=== PATIENT | female | born 1970 | race Asian ===

== ENCOUNTER 2016-12-04 09:11 | Outpatient (CLI) | payer OTHER ==
[~2016-12-04 09:11] MED LIST: AZELASTINE HCL0.15 % PO; BUDEPRION150 MG PO; CETIRIZINE10 MG PO; CHLORTHALID25 MG PO; DIPH25CA90 PO; GABA400C2 PO; LAMOTRIGINE25 MG PO; LISI20TA11 PO; NEURONTIN 100M100 MG PO; OMEPRAZOLE20 M1 PO; ROZEREM8 MG PO; SERT100T PO; ZANTAC 75 PO
== END 2016-12-04 10:11 | disposition home or self-care (01) ==
LOC: MAMMO 09:11
DX: Z12.39 Encounter for other screening for malignant neoplasm of breast (principal); Z12.31 Encounter for screening mammogram for malignant neoplasm of breast
CPT/HCPCS: G0202-TC

== ENCOUNTER 2017-04-20 11:41 | Outpatient (CLI) | payer BC ==
[2017-04-20 12:05] LABS: POTASSIUM 3.1 mmol/L (3.6-5.2); SODIUM 136 mmol/L (136-145)
== END 2017-04-20 12:45 | disposition home or self-care (01) ==
LOC: LABW 11:41
DX: E11.9 Type 2 diabetes mellitus without complications (principal)
CPT/HCPCS: 36415; 80048

== ENCOUNTER 2017-12-31 10:21 | Outpatient (CLI) | payer OTHER | END 2017-12-31 19:21 | disposition home or self-care (01) | LOC: MAMMO 10:21 | DX: Z12.31 Encounter for screening mammogram for malignant neoplasm of breast (principal) ==

== ENCOUNTER 2018-01-28 09:58 | Outpatient (CLI) | payer OTHER | END 2018-01-28 22:21 | disposition home or self-care (01) | LOC: MAMMO 09:58 | DX: R92.8 Other abnormal and inconclusive findings on diagnostic imaging of breast (principal) ==

== ENCOUNTER 2019-02-22 10:32 | Outpatient (CLI) | payer OTHER | END 2019-02-22 21:07 | disposition home or self-care (01) | LOC: MAMMO 10:32 | DX: Z12.31 Encounter for screening mammogram for malignant neoplasm of breast (principal); N60.02 Solitary cyst of left breast ==

== ENCOUNTER 2020-03-17 01:07 | Emergency (ER) | payer OTHER, BC ==
[~2020-03-17] VITALS: Ht 175.3 cm; Wt 95.3 kg
[~2020-03-17 01:07] MED LIST changes: +AMLODIPINE BESYLATE PO; +CARV3.12 PO
[2020-03-17] MEDS ORDERED: CLARITIN10 MG PO (01:55)
[2020-03-17] MEDS ORDERED: AMOX875T8 PO (01:56)
[2020-03-17] MEDS ORDERED: TYLENOL325 MG PO (01:56)
[2020-03-17] MEDS ORDERED: HYDROXYZINE HYD10 MG PO (01:57)
[2020-03-17] MEDS ORDERED: FLONASE AL50 MCG/ACT NAS (01:58)
[2020-03-17 04:53] VITALS: BP 124/88; TEMP 97.3
== END 2020-03-17 05:05 | disposition home or self-care (01) ==
LOC: ED 01:07
DX: K21.9 Gastro-esophageal reflux disease without esophagitis (principal); J02.9 Acute pharyngitis, unspecified; J30.89 Other allergic rhinitis; Z79.2 Long term (current) use of antibiotics
CPT/HCPCS: 87502; 87651; 99283

== ENCOUNTER 2020-03-21 10:19 | Outpatient (CLI) | payer OTHER, BC ==
[~2020-03-21 10:19] MED LIST changes: +AMOX875T8 PO; +CLARITIN10 MG PO; +FLONASE AL50 MCG/ACT NAS; +HYDROXYZINE HYD10 MG PO; +TYLENOL325 MG PO
== END 2020-03-21 22:55 | disposition home or self-care (01) ==
LOC: CT 10:19
DX: R22.1 Localized swelling, mass and lump, neck (principal)
CPT/HCPCS: Q9963

== ENCOUNTER 2020-07-26 10:38 | Outpatient (CLI) | payer BC, OTHER | END 2020-07-26 21:58 | disposition home or self-care (01) | LOC: MAMMO 10:38 | DX: Z12.31 Encounter for screening mammogram for malignant neoplasm of breast (principal) ==

== ENCOUNTER 2020-08-02 11:08 | Outpatient (CLI) | payer OTHER | END 2020-08-02 21:50 | disposition home or self-care (01) | LOC: MAMMO 11:08 | DX: Z12.31 Encounter for screening mammogram for malignant neoplasm of breast (principal) ==

== ENCOUNTER 2020-11-02 13:19 | Emergency (ER) | payer BC, OTHER ==
[~2020-11-02] VITALS: Ht 175.3 cm; Wt 95.3 kg
[2020-11-02 13:37] VITALS: TEMP 97.5
[2020-11-02 14:53] LABS: PLATELET COUNT 247 K/uL (152-353)
[2020-11-02 15:01] LABS: POTASSIUM 2.5 mmol/L (3.6-5.2); SODIUM 140 mmol/L (136-145)
[2020-11-02 18:00] VITALS: BP 121/73
== END 2020-11-02 18:15 | disposition home or self-care (01) ==
LOC: ED 13:19
PROVIDERS: Family Medicine
DX: R07.89 Other chest pain (principal); K21.9 Gastro-esophageal reflux disease without esophagitis; E87.6 Hypokalemia
CPT/HCPCS: 80053; 82550; 84484; 85027; 93005; 99283

== ENCOUNTER 2020-11-03 21:25 | Emergency (ER) | payer BC, OTHER ==
[~2020-11-03] VITALS: Ht 175.3 cm; Wt 95.3 kg
[2020-11-03 22:24] VITALS: BP 132/83; TEMP 98.7
== END 2020-11-03 22:24 | disposition home or self-care (01) ==
LOC: ED 21:25
DX: S13.4XXA Sprain of ligaments of cervical spine, initial encounter (principal); M79.18 Myalgia, other site
CPT/HCPCS: 99282

== ENCOUNTER 2021-10-04 11:31 | Outpatient (CLI) | payer OTHER | END 2021-10-04 19:37 | disposition home or self-care (01) | LOC: MAMMO 11:31 | PROVIDERS: ATTEND Nurse Practitioner Family | DX: Z12.31 Encounter for screening mammogram for malignant neoplasm of breast (principal) ==

== ENCOUNTER 2022-01-14 13:31 | Emergency (ER) | payer OTHER ==
[~2022-01-14] VITALS: Ht 175.3 cm; Wt 95.3 kg
[2022-01-14 13:48] VITALS: TEMP 98.8
[2022-01-14 14:16] LABS: PLATELET COUNT 251 K/uL (152-353)
[2022-01-14 14:25] LABS: POTASSIUM 3.1 mmol/L (3.6-5.2)
[2022-01-14 18:05] VITALS: BP 133/82
== END 2022-01-14 18:07 | disposition home or self-care (01) ==
LOC: ED 13:31
PROVIDERS: Emergency Medicine
DX: R07.89 Other chest pain (principal)
CPT/HCPCS: 36415; 80053; 81000; 84484; 85027; 93005; 96374; 96375; 96376; 99284; J2270; J2405; J3490

== ENCOUNTER 2022-04-03 09:42 | Outpatient (CLI) | payer OTHER | END 2022-04-03 19:28 | disposition home or self-care (01) | LOC: LABW 09:42 | PROVIDERS: ATTEND Internal Medicine Cardiovascular Disease | DX: E78.5 Hyperlipidemia, unspecified (principal) | CPT/HCPCS: 36415; 80061 ==

== ENCOUNTER 2022-06-14 20:51 | Emergency (ER) | payer OTHER ==
[~2022-06-14] VITALS: Ht 175.3 cm; Wt 97.5 kg
[2022-06-14] MEDS ORDERED: K-TAB20 MEQ PO (21:25)
[2022-06-14] MEDS ORDERED: PANTOPRAZOLE 40MG TA PO (21:25)
[2022-06-14] MEDS ORDERED: TIZA4TAB5 PO (21:26)
[2022-06-14] MEDS ORDERED: TRAZ50TA36 PO (21:26)
[2022-06-14] MEDS ORDERED: CARAFATE1 GM PO (21:26)
[2022-06-14 22:02] LABS: PLATELET COUNT 304 K/uL (152-353)
[2022-06-14 22:08] LABS: PARTIAL THROMBOPLASTIN TIME 27.4 SECONDS (24.5-33.6)
[2022-06-15 01:20] VITALS: BP 128/77; TEMP 99.8
== END 2022-06-15 01:20 | disposition short-term general hospital (02) ==
LOC: ED 20:51
PROVIDERS: Family Medicine
DX: K35.890 Other acute appendicitis without perforation or gangrene (principal); E87.6 Hypokalemia
CPT/HCPCS: 36415; 80053; 81002; 82150; 82550; 83690; 84484; 85027; 85610; 85730; 93005; 96360; 96365; 96366; 96375; 99284; J0696; J1885

== ENCOUNTER 2022-11-10 10:30 | Outpatient (CLI) | payer OTHER ==
[~2022-11-10 10:30] MED LIST changes: +CARAFATE1 GM PO; +K-TAB20 MEQ PO; +PANTOPRAZOLE 40MG TA PO; +TIZA4TAB5 PO; +TRAZ50TA36 PO
== END 2022-11-10 20:22 | disposition home or self-care (01) ==
LOC: MAMMO 10:30
PROVIDERS: ATTEND Nurse Practitioner Family
DX: Z12.31 Encounter for screening mammogram for malignant neoplasm of breast (principal)

== ENCOUNTER 2023-07-02 13:51 | Emergency (ER) | payer OTHER ==
[~2023-07-02] VITALS: Ht 175.3 cm; Wt 95.3 kg
[2023-07-02 13:56] VITALS: BP 131/83; TEMP 98
== END 2023-07-02 15:27 | disposition home or self-care (01) ==
LOC: ED 13:51
DX: S16.1XXA Strain of muscle, fascia and tendon at neck level, initial encounter (principal); S39.012A Strain of muscle, fascia and tendon of lower back, initial encounter
CPT/HCPCS: 96372; 99283; J1100; J1885